=== PATIENT | female | born 1985 | race Caucasian/White ===

== ENCOUNTER → 2016-10-17 | Outpatient (CLI) | payer OTHER ==
[~2016-10-17] VITALS: Ht 162.6 cm; Wt 57.7 kg
[2016-10-17 12:47] VITALS: BP 108/71; PULSE 69; Ht 162.6 cm; Wt 57.7 kg
== END | disposition home or self-care (01) ==
LOC: C.NEUR 12:28
PROVIDERS: ATTEND Internal Medicine Pulmonary Disease
DX: G47.00 Insomnia, unspecified (principal); F32.9 Major depressive disorder, single episode, unspecified